=== PATIENT | male | born 1965 | race Caucasian/White ===

== ENCOUNTER 2019-02-27 07:54 | Inpatient (IN) | payer MEDICARE, OTHER ==
[2019-02-27] VITALS (7 sets, daily range): BP systolic 93–153; BP diastolic 65–90
[~2019-02-27] VITALS: Ht 177.8 cm; Wt 88.6 kg
[~2019-02-27 07:54] MED LIST: ALBU18HF2 INH; BECL7.3A INH; DIPH25CA83 PO; EPIN0.3P8 IM; IBUP-1984 PO; LISI40TA4 PO; LOVA20TA2 PO; OMEP20TA5 PO
[2019-02-27] MEDS ORDERED: pantoprazole 40MG/NS 100ML BAG 100 ML IV SCH (08:10)
[2019-02-27] MEDS ORDERED: ondansetron/PF 4mg/2ml inj IV ONE (08:10)
[2019-02-27] MEDS ORDERED: pantoprazole IV 80 MG in normal saline 100ml IV soln 100 ML IV ONE (08:10)
[2019-02-27] MEDS ORDERED: normal saline 1000ML IV soln IV ONE (08:10)
[2019-02-27 08:43] LABS: BASOPHILS # (AUTO) 0.1 X10'3 (0-0.2); BASOPHILS % (AUTO) 0.7 % (0-1); EOSINOPHILS # (AUTO) 0.2 X10'3 (0-0.9); EOSINOPHILS % (AUTO) 1.9 % (0-6); HEMATOCRIT 42.8 % (42.0-52.0); HEMOGLOBIN 15.1 g/dl (14.0-17.9); LYMPHOCYTES # (AUTO) 1.6 X10'3 (1.1-4.8); MEAN CORPUSCULAR HEMOGLOBIN 35.1 PG (27.0-31.0); MEAN CORPUSCULAR HGB CONC 35.3 g/dL (33.0-36.5); MEAN CORPUSCULAR VOLUME 99.3 FL (78-98); MEAN PLATELET VOLUME 10.1 FL (7.4-10.4); MONOCYTES # (AUTO) 1.4 X10'3 (0-0.9); MONOCYTES % (AUTO) 12.8 % (2-12); NEUTROPHILS # (AUTO) 7.5 X10'3 (1.8-7.7); NEUTROPHILS % (AUTO) 69.6 % (42-75); PLATELET COUNT 119 X10'3 (140-440); RED BLOOD COUNT 4.31 X10'6 (4.70-6.10); RED CELL DISTRIBUTION WIDTH 13.2 % (11.5-14.5); WHITE BLOOD COUNT 10.8 X10'3 (4.5-11.0)
[2019-02-27 08:49] LABS: PARTIAL THROMBOPLASTIN TIME 28 SECONDS (22-32)
[2019-02-27 08:51] LABS: ALANINE AMINOTRANSFERASE 22 U/L (12-78); ALBUMIN 3.6 G/DL (3.4-5.0); ALBUMIN/GLOBULIN RATIO 0.7 (1.1-1.5); ALKALINE PHOSPHATASE 111 IU/L (46-116); ANION GAP 11 (8-16); ASPARTATE AMINO TRANSFERASE 53 U/L (10-37); BILIRUBIN,TOTAL 1.6 MG/DL (0.1-1.0); BLOOD UREA NITROGEN 29 MG/DL (7-18); BUN/CREATININE RATIO 27.6 (5.4-32.0); CALCIUM 9.2 MG/DL (8.5-10.1); CHLORIDE 106 MMOL/L (99-107); CREATININE 1.05 MG/DL (0.60-1.10); GLUCOSE 135 MG/DL (70-104); POTASSIUM 4.3 MMOL/L (3.5-5.1); SODIUM 141 MMOL/L (135-145); TOTAL CARBON DIOXIDE 24.5 MMOL/L (24-32); TOTAL PROTEIN 8.6 G/DL (6.4-8.2); eGFR 74 ML/MIN
[2019-02-27] MEDS ORDERED: magnesium 2GM in 50ml NS 50 ML IV PRN (09:15)
[2019-02-27] MEDS ORDERED: dextrose 50%-water 50ml dispensing syringe IV PRN (09:15)
[2019-02-27] MEDS ORDERED: acetaminophen 325mg tablet PO PRN ×2 (09:15)
[2019-02-27] MEDS ORDERED: LORazepam 2 mg/ml vial IV PRN (09:15)
[2019-02-27] MEDS ORDERED: ondansetron/PF 4mg/2ml inj IV PRN (09:15)
[2019-02-27] MEDS ORDERED: potassium CL 10mEq/100ml bag 100 ML IV PRN ×2 (09:15)
[2019-02-27] MEDS ORDERED: LORazepam 1 MG tablet PO PRN (09:15)
[2019-02-27] MEDS ORDERED: morphine 2 MG/ML inj. syringe IV PRN (09:15)
[2019-02-27] MEDS ORDERED: magnesium 4gm in 100ml NS 100 ML IV PRN (09:15)
[2019-02-27] MEDS ORDERED: magnesium Cl slow-release 64mg tablet PO PRN (09:15)
[2019-02-27] MEDS ORDERED: potassium Cl 20 mEq SR tablet PO PRN ×2 (09:15)
[2019-02-27] MEDS ORDERED: HYDROcodone/acetaminophen 5mg/325mg tablet PO PRN (09:15)
[2019-02-27] MEDS: octreotide inj. 1,250 MCG in normal saline 250ml IV soln 250 ML IV SCH (09:34)
--- NOTE | 2019-02-27 10:26 | NUR ---
Patient in room ED 9. I have received report from Sherry Doherty from ED and had the opportunity to ask questions and assume patient care.
[2019-02-27] MEDS: pantoprazole 40MG/NS 100ML BAG 100 ML IV SCH ×3 (13:01→20:31)
[2019-02-27] MEDS: normal saline 1000ml 1,000 ML IV SCH ×2 (13:02→19:12)
--- NOTE | 2019-02-27 14:15 | NUR ---
Pt at GI lab, tech advised it would be about 1 hr so holding off until pt comes back. 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
--- NOTE | 2019-02-27 14:29 | NUR ---
Pt is going to GI lab for a GED.
[2019-02-27] MEDS ORDERED: MIDAZolam 5mg/5ml vial ONE (14:50)
[2019-02-27] MEDS ORDERED: fentaNYL/PF 50MCG/1 ML 2ML syringe ONE (14:50)
[2019-02-27] MEDS ORDERED: LIDOcaine Viscous 15ml cup ONE (14:50)
--- NOTE | 2019-02-27 18:52 | NUR ---
Patient in room [facility] 347. I have received report from Tamy YAP and had the opportunity to ask questions and assume patient care. Patient is resting and rodriguez protonix drip running. His is by his bedside.
--- NOTE | 2019-02-27 18:54 | NUR ---
Problems reprioritized. Patient report given, questions answered & plan of care reviewed with Surjit YAP.
[2019-02-27] MEDS: docusate sod 100mg capsule PO SCH (19:29)
[2019-02-27] MEDS ORDERED: temazepam 15mg capsule PO PRN (21:00)
[2019-02-28] VITALS: BP 110/77
[2019-02-28] MEDS: normal saline 1000ml 1,000 ML IV SCH ×2 (00:20→07:44)
[2019-02-28] MEDS: pantoprazole 40MG/NS 100ML BAG 100 ML IV SCH ×3 (01:27→10:20)
--- NOTE | 2019-02-28 06:10 | NUR ---
Problems reprioritized. Patient report given, questions answered & plan of care reviewed with MARELY Hernandez.
--- NOTE | 2019-02-28 06:15 | NUR ---
Patient in room [facility] 347. I have received report from MARELY Hernandez and had the opportunity to ask questions and assume patient care.
[2019-02-28 06:30] VITALS: BP 123/83
--- NOTE | 2019-02-28 06:36 | NUR ---
Problems reprioritized. Patient report given, questions answered & plan of care reviewed with Tea RN. Patient is resting and shows no sign of distress.
[2019-02-28] MEDS: K and/or MAG REPLACEMENT MC SCH (07:10)
[2019-02-28 07:38] LABS: ALANINE AMINOTRANSFERASE 17 U/L (12-78); ALBUMIN 2.9 G/DL (3.4-5.0); ALBUMIN/GLOBULIN RATIO 0.7 (1.1-1.5); ALKALINE PHOSPHATASE 81 IU/L (46-116); ANION GAP 8 (8-16); ASPARTATE AMINO TRANSFERASE 55 U/L (10-37); BILIRUBIN,TOTAL 1.9 MG/DL (0.1-1.0); BLOOD UREA NITROGEN 24 MG/DL (7-18); BUN/CREATININE RATIO 22.9 (5.4-32.0); CALCIUM 8.3 MG/DL (8.5-10.1); CHLORIDE 110 MMOL/L (99-107); CREATININE 1.05 MG/DL (0.60-1.10); GLUCOSE 108 MG/DL (70-104); MAGNESIUM 1.9 MG/DL (1.5-2.4); SODIUM 143 MMOL/L (135-145); TOTAL CARBON DIOXIDE 25.5 MMOL/L (24-32); eGFR 74 ML/MIN
[2019-02-28] MEDS: thiamine 100mg tablet PO SCH (07:43)
[2019-02-28] MEDS: docusate sod 100mg capsule PO SCH ×2 (07:43→19:49)
[2019-02-28 07:55] LABS: BASOPHILS # (AUTO) 0.1 X10'3 (0-0.2); BASOPHILS % (AUTO) 1.1 % (0-1); EOSINOPHILS # (AUTO) 0.2 X10'3 (0-0.9); EOSINOPHILS % (AUTO) 4.4 % (0-6); HEMATOCRIT 35.9 % (42.0-52.0); HEMOGLOBIN 12.3 g/dl (14.0-17.9); LYMPHOCYTES # (AUTO) 1.2 X10'3 (1.1-4.8); LYMPHOCYTES % (AUTO) 20.9 % (21-51); MEAN CORPUSCULAR HEMOGLOBIN 34.8 PG (27.0-31.0); MEAN CORPUSCULAR HGB CONC 34.3 g/dL (33.0-36.5); MEAN CORPUSCULAR VOLUME 101.3 FL (78-98); MEAN PLATELET VOLUME 10.2 FL (7.4-10.4); MONOCYTES # (AUTO) 0.6 X10'3 (0-0.9); MONOCYTES % (AUTO) 11.2 % (2-12); NEUTROPHILS # (AUTO) 3.5 X10'3 (1.8-7.7); NEUTROPHILS % (AUTO) 62.4 % (42-75); PLATELET COUNT 66 X10'3 (140-440); RED BLOOD COUNT 3.54 X10'6 (4.70-6.10); RED CELL DISTRIBUTION WIDTH 13.6 % (11.5-14.5); WHITE BLOOD COUNT 5.6 X10'3 (4.5-11.0)
[2019-02-28] MEDS ORDERED: pneumococcal 23-VAL P-sac vacc 25 mcg/0.5ml vial IMVAC ONE (10:00)
[2019-02-28] MEDS: octreotide inj. 1,250 MCG in normal saline 250ml IV soln 250 ML IV SCH (10:20)
[2019-02-28 11:00] VITALS: BP 122/80
[2019-02-28 15:33] LABS: HEMATOCRIT 34.4 % (42.0-52.0); HEMOGLOBIN 11.8 g/dl (14.0-17.9); MEAN CORPUSCULAR HEMOGLOBIN 34.6 PG (27.0-31.0); MEAN CORPUSCULAR HGB CONC 34.3 g/dL (33.0-36.5); MEAN CORPUSCULAR VOLUME 100.8 FL (78-98); MEAN PLATELET VOLUME 9.7 FL (7.4-10.4); PLATELET COUNT 70 X10'3 (140-440); RED BLOOD COUNT 3.42 X10'6 (4.70-6.10); RED CELL DISTRIBUTION WIDTH 13.2 % (11.5-14.5); WHITE BLOOD COUNT 5.5 X10'3 (4.5-11.0)
[2019-02-28 18:00] VITALS: BP 141/85
--- NOTE | 2019-02-28 18:35 | NUR ---
Patient in room [facility] 347. I have received report from Tea YAP and had the opportunity to ask questions and assume patient care.
[2019-02-28] MEDS: pantoprazole 40 MG vial IV SCH (19:44)
[2019-03-01] VITALS: BP 135/85
[2019-03-01 06:07] LABS: BASOPHILS % (AUTO) 0.8 % (0-1); EOSINOPHILS # (AUTO) 0.3 X10'3 (0-0.9); HEMATOCRIT 30.7 % (42.0-52.0); HEMOGLOBIN 10.8 g/dl (14.0-17.9); LYMPHOCYTES # (AUTO) 0.7 X10'3 (1.1-4.8); LYMPHOCYTES % (AUTO) 14.5 % (21-51); MEAN CORPUSCULAR HEMOGLOBIN 35.3 PG (27.0-31.0); MEAN CORPUSCULAR HGB CONC 35.1 g/dL (33.0-36.5); MEAN CORPUSCULAR VOLUME 100.5 FL (78-98); MEAN PLATELET VOLUME 9.6 FL (7.4-10.4); MONOCYTES # (AUTO) 0.7 X10'3 (0-0.9); MONOCYTES % (AUTO) 13.5 % (2-12); NEUTROPHILS # (AUTO) 3.4 X10'3 (1.8-7.7); NEUTROPHILS % (AUTO) 66.2 % (42-75); PLATELET COUNT 59 X10'3 (140-440); RED BLOOD COUNT 3.06 X10'6 (4.70-6.10); WHITE BLOOD COUNT 5.1 X10'3 (4.5-11.0)
--- NOTE | 2019-03-01 06:20 | NUR ---
Patient in room [facility] 347. I have received report from MARELY Hernandez and had the opportunity to ask questions and assume patient care.
[2019-03-01 06:30] VITALS: BP 129/84
[2019-03-01 06:32] LABS: ALANINE AMINOTRANSFERASE 20 U/L (12-78); ALBUMIN 2.8 G/DL (3.4-5.0); ALBUMIN/GLOBULIN RATIO 0.7 (1.1-1.5); ALKALINE PHOSPHATASE 80 IU/L (46-116); ANION GAP 7 (8-16); ASPARTATE AMINO TRANSFERASE 70 U/L (10-37); BILIRUBIN,TOTAL 1.8 MG/DL (0.1-1.0); BLOOD UREA NITROGEN 13 MG/DL (7-18); BUN/CREATININE RATIO 11.9 (5.4-32.0); CALCIUM 8.2 MG/DL (8.5-10.1); CHLORIDE 108 MMOL/L (99-107); CREATININE 1.09 MG/DL (0.60-1.10); GLUCOSE 102 MG/DL (70-104); MAGNESIUM 1.8 MG/DL (1.5-2.4); POTASSIUM 3.9 MMOL/L (3.5-5.1); SODIUM 141 MMOL/L (135-145); TOTAL CARBON DIOXIDE 26.4 MMOL/L (24-32); TOTAL PROTEIN 6.8 G/DL (6.4-8.2); eGFR 71 ML/MIN
--- NOTE | 2019-03-01 06:39 | NUR ---
Problems reprioritized. Patient report given, questions answered & plan of care reviewed with Mike YAP.
[2019-03-01] MEDS: K and/or MAG REPLACEMENT MC SCH ×2 (06:45→09:02)
[2019-03-01] MEDS: pantoprazole 40 MG vial IV SCH ×2 (09:02→20:36)
[2019-03-01] MEDS: thiamine 100mg tablet PO SCH (09:02)
[2019-03-01] MEDS: docusate sod 100mg capsule PO SCH ×2 (09:02→20:36)
[2019-03-01 11:00] VITALS: BP 117/80
[2019-03-01 15:39] LABS: HEMATOCRIT 33.1 % (42.0-52.0); HEMOGLOBIN 11.5 g/dl (14.0-17.9); MEAN CORPUSCULAR HEMOGLOBIN 34.7 PG (27.0-31.0); MEAN CORPUSCULAR HGB CONC 34.8 g/dL (33.0-36.5); MEAN CORPUSCULAR VOLUME 99.7 FL (78-98); MEAN PLATELET VOLUME 9.8 FL (7.4-10.4); PLATELET COUNT 69 X10'3 (140-440); RED BLOOD COUNT 3.32 X10'6 (4.70-6.10); WHITE BLOOD COUNT 5.9 X10'3 (4.5-11.0)
--- NOTE | 2019-03-01 18:15 | NUR ---
Problems reprioritized. Patient report given, questions answered & plan of care reviewed with MARELY Malone.
[2019-03-01 18:40] VITALS: BP 143/75
[2019-03-02] VITALS: BP 118/78
[2019-03-02 05:14] LABS: EOSINOPHILS # (AUTO) 0.2 X10'3 (0-0.9); EOSINOPHILS % (AUTO) 5.1 % (0-6); HEMATOCRIT 30.7 % (42.0-52.0); HEMOGLOBIN 10.7 g/dl (14.0-17.9); LYMPHOCYTES # (AUTO) 0.8 X10'3 (1.1-4.8); LYMPHOCYTES % (AUTO) 18.3 % (21-51); MEAN CORPUSCULAR HGB CONC 34.8 g/dL (33.0-36.5); MEAN CORPUSCULAR VOLUME 100.6 FL (78-98); MEAN PLATELET VOLUME 10.1 FL (7.4-10.4); MONOCYTES # (AUTO) 0.5 X10'3 (0-0.9); MONOCYTES % (AUTO) 11.7 % (2-12); NEUTROPHILS # (AUTO) 2.9 X10'3 (1.8-7.7); NEUTROPHILS % (AUTO) 63.9 % (42-75); PLATELET COUNT 62 X10'3 (140-440); RED BLOOD COUNT 3.05 X10'6 (4.70-6.10); RED CELL DISTRIBUTION WIDTH 13.2 % (11.5-14.5); WHITE BLOOD COUNT 4.5 X10'3 (4.5-11.0)
[2019-03-02 06:00] LABS: ALANINE AMINOTRANSFERASE 23 U/L (12-78); ALBUMIN 2.9 G/DL (3.4-5.0); ALBUMIN/GLOBULIN RATIO 0.7 (1.1-1.5); ALKALINE PHOSPHATASE 95 IU/L (46-116); ANION GAP 10 (8-16); ASPARTATE AMINO TRANSFERASE 72 U/L (10-37); BILIRUBIN,TOTAL 1.5 MG/DL (0.1-1.0); BLOOD UREA NITROGEN 9 MG/DL (7-18); CALCIUM 8.2 MG/DL (8.5-10.1); CHLORIDE 109 MMOL/L (99-107); GLUCOSE 95 MG/DL (70-104); MAGNESIUM 1.9 MG/DL (1.5-2.4); POTASSIUM 3.6 MMOL/L (3.5-5.1); SODIUM 143 MMOL/L (135-145); TOTAL CARBON DIOXIDE 24.3 MMOL/L (24-32); TOTAL PROTEIN 6.9 G/DL (6.4-8.2); eGFR 78 ML/MIN
--- NOTE | 2019-03-02 06:15 | NUR ---
Patient in room [facility] 347. I have received report from MARELY Malone and had the opportunity to ask questions and assume patient care.
--- NOTE | 2019-03-02 06:27 | NUR ---
Problems reprioritized. Patient report given, questions answered & plan of care reviewed with [place]. Addendum: 03/02/19 at 0628 by Ladarius Marie RN Amended: Links added.
[2019-03-02 06:30] VITALS: BP 141/70
--- NOTE | 2019-03-02 06:32 | NUR ---
Problems reprioritized. Patient report given, questions answered & plan of care reviewed with Tea Vides. Addendum: 03/02/19 at 0632 by Ladarius Marie RN Amended: Links added.
[2019-03-02] MEDS: K and/or MAG REPLACEMENT MC SCH (07:27)
[2019-03-02] MEDS: docusate sod 100mg capsule PO SCH (10:28)
[2019-03-02] MEDS: thiamine 100mg tablet PO SCH (10:28)
[2019-03-02] MEDS: pantoprazole 40 MG vial IV SCH (10:29)
[2019-03-02 11:00] VITALS: BP 131/90
[2019-03-02] MEDS ORDERED: thiamine tablet PO (15:17)
[2019-03-02] MEDS ORDERED: PANT40TA4 PO (15:17)
[2019-03-02] MEDS ORDERED: DOCU100C40 PO (15:17)
[2019-03-02] MEDS ORDERED: FOLI0.4T2 PO (15:17)
--- NOTE | 2019-03-02 16:30 | NUR ---
DC inst provided to pt & pt's S.O. IVs DC'd, tips intact. All belongings sent w/pt. Pt ambulated to front lobby.
== END 2019-03-02 16:36 | disposition home or self-care (01) | DRG 379 ==
LOC: ER 07:55 → ED HOLD 09:24 → SUR 3N 10:37
PROVIDERS: ADMIT Internal Medicine; ATTEND Family Medicine
PROC: 0DJ08ZZ Inspection of Upper Intestinal Tract, Via Natural or Artificial Opening Endoscopic (ICD-10-PCS; principal; 2019-02-27)
PROC: 3E0234Z Introduction of Serum, Toxoid and Vaccine into Muscle, Percutaneous Approach (ICD-10-PCS; 2019-02-28)
DX: K29.51 Unspecified chronic gastritis with bleeding (principal); D69.6 Thrombocytopenia, unspecified; F10.20 Alcohol dependence, uncomplicated; K22.70 Barrett's esophagus without dysplasia; K26.9 Duodenal ulcer, unspecified as acute or chronic, without hemorrhage or perforation; E78.00 Pure hypercholesterolemia, unspecified; F12.90 Cannabis use, unspecified, uncomplicated; F17.210 Nicotine dependence, cigarettes, uncomplicated; I10 Essential (primary) hypertension; J45.909 Unspecified asthma, uncomplicated; K21.0 Gastro-esophageal reflux disease with esophagitis; K29.80 Duodenitis without bleeding; R00.0 Tachycardia, unspecified; R09.02 Hypoxemia; K44.9 Diaphragmatic hernia without obstruction or gangrene; Z23 Encounter for immunization; Z91.030 Bee allergy status; Z82.49 Family history of ischemic heart disease and other diseases of the circulatory system; Z71.6 Tobacco abuse counseling; Z71.41 Alcohol abuse counseling and surveillance of alcoholic
CPT/HCPCS: 36415; 43235; 71045; 80053; 82948; 83735; 85025; 85027; 85610; 85730; 86885; 86900; 86901; 87081; 90732; 93005; 96365; 96375; 99152; 99153; 99285; A4620; C9113; G0378; J2250; J2354; J2405; J3010; J7030; J7040; J7050

== ENCOUNTER 2019-03-28 14:42 | Emergency (ER) | payer MEDICARE ==
[~2019-03-28] VITALS: Ht 177.8 cm; Wt 93.0 kg
[~2019-03-28 14:42] MED LIST changes: -BECL7.3A INH; -DIPH25CA83 PO; +DOCU100C40 PO; -EPIN0.3P8 IM; +FOLI0.4T2 PO; -IBUP-1984 PO; -LISI40TA4 PO; -LOVA20TA2 PO; -OMEP20TA5 PO; +PANT40TA4 PO; +thiamine tablet PO
[2019-03-28 15:10] VITALS: BP 148/85
== END 2019-03-28 17:21 | disposition home or self-care (01) ==
LOC: ER 14:44
DX: H57.11 Ocular pain, right eye (principal); E78.00 Pure hypercholesterolemia, unspecified; I10 Essential (primary) hypertension; J45.909 Unspecified asthma, uncomplicated; K21.9 Gastro-esophageal reflux disease without esophagitis; F10.99 Alcohol use, unspecified with unspecified alcohol-induced disorder; Z91.030 Bee allergy status; Z79.899 Other long term (current) drug therapy; Y90.9 Presence of alcohol in blood, level not specified
CPT/HCPCS: 99283